=== PATIENT | female | born 1960 | race Caucasian/White ===

== ENCOUNTER 2016-11-20 05:49 | Day surgery (SDC) | payer BC, MEDICARE ==
--- NOTE | ~2016-11-20 | EGD ---
EGD REPORT [facility] [address] [address] NAME: DOLLY ARROYO : 64 [place]US [place] [facility] [place] [id number] AGE: 56 ADM/REG DATE : 11/20/16 MR#: [id number] REPORT SERV DATE: 11/20/16 DICTATED BY: CARL DON DATE: 11/20/16 REPORT STATUS : Draft TRANSCRIBED BY: [facility] DATE: 11/20/16 Endoscopy Center Patient Name: Dolly Arroyo Date of : 1960 Attending MD: CARL DON MD Procedure Date No Time: 11/20/2016 Procedure: Upper GI endoscopy Indications: Dysphagia Referring MD: ADAM NORTH III Medicines: Propofol per Anesthesia Complications: No immediate complications. Procedure: Pre-Anesthesia Assessment: - ASA Grade Assessment: III - A patient with severe systemic disease. After obtaining informed consent, the endoscope was passed under direct vision. Throughout the procedure, the patient's blood pressure, pulse, and oxygen saturations were monitored continuously. The GIF [id number] was introduced through the mouth, and advanced to the second part of duodenum. The upper GI endoscopy was accomplished without difficulty. The patient tolerated the procedure well. The upper GI endoscopy was accomplished without difficulty. The patient tolerated the procedure well. Findings: The examined esophagus was normal. Diffuse moderate inflammation characterized by erosions, erythema and friability was found in the stomach. The examined duodenum was normal. Impression: - Normal esophagus. - Chronic gastritis. - Normal examined duodenum. Recommendation: - Discharge patient to home (ambulatory). Procedure Code(s): --- Professional --- 76307, Esophagogastroduodenoscopy, flexible, transoral; diagnostic, including collection of specimen(s) by brushing or washing, when performed (separate procedure) Diagnosis Code(s): --- Professional --- K29.50, Unspecified chronic gastritis without bleeding R13.10, Dysphagia, unspecified EGD REPORT [address] [address] NAME: DOLLY ARROYO : [birth year] STATUS : REG [facility]#: [id number] AGE: 56 ADM/REG DATE : 11/20/16 MR#: [id number] REPORT SERV DATE: 11/20/16 DICTATED BY: CARL DON. DATE: 11/20/16 REPORT STATUS : Draft TRANSCRIBED BY: [employer] DATE: 11/20/16 CPT copyright 2013 [employer]. All rights reserved. The codes documented in this report are preliminary and upon tread builder review may be revised to meet current compliance requirements. Carl Don MD CARL DON MD 11/20/2016 8:34 AM This report has been signed electronically. Number of Addenda: 0 Note Initiated On: 11/20/2016 7:[address] [place] [id number]
[~2016-11-20 05:49] MED LIST: ADVAIR100 INH; ADVAIR230P INH; ALLEGRA-D12 HOUR PO; AMB10 PO; BIO IDENTICAL HORMON SL; CLARIT10 PO; COZ50 PO; DHEA25 MG OR; ESTRADIOL2 MG PO; FLEX PO; IBU800 PO; LORT7 PO; MOBIC15 MG PO; PROMETRIUM PO; PROVHFA INH; ROXICODONE15 MG PO; SEROQUEL300 MG PO; SINGULAIR1 PO; SYMBICORT 160/41 INH INH; SYN.025B PO; TRILEP300 PO; XANAX1 MG PO
== END 2016-11-20 23:59 | disposition home health service (06) ==
LOC: DMU 05:49
PROVIDERS: Internal Medicine Gastroenterology
PROC: 0DJ08ZZ Inspection of Upper Intestinal Tract, Via Natural or Artificial Opening Endoscopic (ICD-10-PCS; principal; 2016-11-20 08:30)
DX: K29.50 Unspecified chronic gastritis without bleeding (principal); E66.9 Obesity, unspecified; I10 Essential (primary) hypertension; J45.909 Unspecified asthma, uncomplicated; Z79.899 Other long term (current) drug therapy; M19.90 Unspecified osteoarthritis, unspecified site; F41.9 Anxiety disorder, unspecified; Z90.49 Acquired absence of other specified parts of digestive tract; Z90.710 Acquired absence of both cervix and uterus; Z98.890 Other specified postprocedural states